=== PATIENT | male | born 1965 | race Caucasian/White ===

== ENCOUNTER 2019-04-30 07:58 | Day surgery (SDC) | payer BC ==
[2019-04-28 12:27] VITALS: BMI 33.3
[~2019-04-30 07:58] MED LIST: LACTATED RINGERS 1,000 ML IV SCH; LIDOCAINE 1% 20 ML VIAL (10MG/ML) FOR IV START INTRADERMA PRN
[2019-04-30 08:38] VITALS: TEMP 97.9
[2019-04-30] MEDS ORDERED: PROPOFOL 10 MG/ML 20 ML VIAL IV ONE (09:04)
--- NOTE | 2019-04-30 09:13 | P.GSHP ---
History of Present Illness H&P Date: 04/30/19 CHIEF COMPLAINT: Colon screen HISTORY OF PRESENT ILLNESS: The patient is a 53-year-old male who presents for colon screen. Lower endoscopy was offered for further evaluation and management. PAST MEDICAL HISTORY: Please see list. PAST SURGICAL HISTORY: Please see list. MEDICATIONS: Please see list. ALLERGIES: Please see list. SOCIAL HISTORY: No illicit drug use FAMILY HISTORY: No reports of Crohn disease or ulcerative colitis. REVIEW OF ORGAN SYSTEMS: CONSTITUTIONAL: No reports of fevers or chills. PHYSICAL EXAM: VITAL SIGNS: Stable GENERAL: Well-developed pleasant in no acute distress. HEENT: No scleral icterus. Extraocular movements grossly intact. Moist buccal mucosa. NECK: Supple without lymphadenopathy. CHEST: Unlabored respirations. Equal bilateral excursions. CARDIOVASCULAR: Regular rate and rhythm. Distal 2+ pulses. ABDOMEN: Soft, nontender, nondistended. MUSCULOSKELETAL: No clubbing, cyanosis, or edema. ASSESSMENT: 1. Colon screen. PLAN: 1. Recommend proceeding with a lower endoscopy Past Medical History Past Medical History: No Reported History History of Any Multi-Drug Resistant Organisms: None Reported Past Surgical History: No Surgical Hx Reported Additional Past Anesthesia/Blood Transfusion Reaction / Comment(s): never had Smoking Status: Former smoker - Past Family History Brother(s) Family Medical History: Cancer Additional Family Medical History / Comment(s): eye Medications and Allergies Home Medications Medication Instructions Recorded Confirmed Type Clobetasol Cream 1 applicate TOPICAL DIRECTED PRN 04/29/19 04/30/19 History Allergies Allergy/AdvReac Type Severity Reaction Status Date / Time amoxicillin Allergy Rash/Hives Verified 04/30/19 08:14 tape Allergy Rash/Hives Uncoded 04/30/19 08:14 Surgical - Exam Vital Signs Temp Pulse Resp BP Pulse Ox 97.9 F 74 18 133/88 96 04/30/19 08:20 04/30/19 08:20 04/30/19 08:20 04/30/19 08:20 04/30/19 08:20
--- NOTE | 2019-04-30 09:34 | P.PCN ---
Date of Procedure: 04/30/19 Description of Procedure: PREOPERATIVE DIAGNOSIS: Colonoscopy screening, first POSTOPERATIVE DIAGNOSIS: Colonoscopy screening, first Multiple tubular adenomas throughout the colon. Sigmoid diverticulosis OPERATION: Colonoscopy to the ileocecal valve and appendiceal orifice. Colonoscopy with multiple hot snare polypectomies SURGEON: Damaris Shepherd MD. ANESTHESIA: MAC. INDICATIONS: The patient is a 53-year-old male who presents for his first colonoscopy screening. Benefits and risks were described and informed consent was obtained. DESCRIPTION OF PROCEDURE: The patient had undergone Suprep. He had been brought into the operating room and laid in the left lateral decubitus position. After adequate intravenous sedation, the rectum was examined with 2% lidocaine jelly. The rectal fossa was unremarkable. No external hemorrhoids were encountered. The rectal tone was within normal limits. No lesions were palpated in the rectal vault. An Olympus colonoscope was advanced until the ileocecal valve and appendiceal orifice were clearly viewed. The prep was fair with visualization of the mucosal folds. The scope was removed with visualization of each mucosal fold. Moderate scattered diverticulosis was encountered. Multiple colonic polyps were found and snare polypectomy. No evidence of focal colitis was found. Retroflexion of the scope demonstrated grade 1 internal hemorrhoids without active bleeding or inflammation. The colon was desufflated. The patient had tolerated the procedure well. Withdrawal time was over 6 minutes. FINDINGS: Aronchick preparation quality scale 2 (1-5) Internal hemorrhoids, grade 1 No external hemorrhoids No arteriovenous malformations Sigmoid diverticulosis, moderate to severe Removal of 2 polyps: - Snare polypectomy 35 cm from the anal verge, 13 mm tubulovillous adenoma polyp. - Snare polypectomy 15 cm from the anal verge, 5 mm flat villous adenoma polyp. No focal colitis. RECOMMENDATIONS: Given severity of tubular adenomas, recommend repeat colonoscopy 1 year, 2019. Plan - Discharge Summary New Discharge Prescriptions: No Action Clobetasol Cream 1 applicate TOPICAL DIRECTED PRN PRN Reason: Rash Discharge Medication List Clobetasol Cream 1 applicate TOPICAL DIRECTED PRN 04/29/19 [History] Follow up Appointment(s)/Referral(s): Damaris Shepherd MD [STAFF PHYSICIAN] - As Needed Patient Instructions/Handouts: Colorectal Polyps (IP), Diverticulosis Diet (GEN), Diverticulosis (DC) Activity/Diet/Wound Care/Special Instructions: Repeat colonoscopy in one year, 2019 Discharge Disposition: HOME SELF-CARE
[2019-04-30 09:53] VITALS: BP 126/84; PULSE 69; RESP 16
== END 2019-04-30 10:05 | disposition home or self-care (01) ==
LOC: ORWHC2ENDO 07:58
PROVIDERS: ATTEND Surgery Plastic and Reconstructive Surgery
DX: Z12.11 Encounter for screening for malignant neoplasm of colon (principal); K57.30 Diverticulosis of large intestine without perforation or abscess without bleeding; Z87.891 Personal history of nicotine dependence; K62.0 Anal polyp; Z88.1 Allergy status to other antibiotic agents; Z88.8 Allergy status to other drugs, medicaments and biological substances
CPT/HCPCS: 88305; 45385; J2704

== ENCOUNTER 2019-04-30 15:53 | Inpatient (IN) | payer BC ==
[2019-04-30] MEDS ORDERED: SODIUM CHLORIDE 0.9% 1,000 ML IV STA (16:03)
[2019-04-30 16:34] LABS: Basophils # (A) 0.1 k/uL (0-0.2); Basophils % (A) 0 %; Eosinophils # (A) 0.3 k/uL (0-0.7); Eosinophils % (A) 2 %; HCT 39.8 % (39.0-53.0); HGB 13.5 gm/dL (13.0-17.5); Lymphocytes # (A) 0.9 k/uL (1.0-4.8); Lymphocytes % (A) 7 %; MCH 29.8 pg (25.0-35.0); MCV 87.4 fL (80.0-100.0); Mean Platelet Volume 6.2; Monocytes # (A) 0.6 k/uL (0-1.0); Monocytes % (A) 5 %; Neutrophils # (A) 10.7 k/uL (1.3-7.7); Neutrophils % (A) 84 %; Platelet Count 233 k/uL (150-450); RBC 4.55 m/uL (4.30-5.90); RDW 13.3 % (11.5-15.5); WBC 12.7 k/uL (3.8-10.6)
[2019-04-30 16:46] LABS: Albumin 3.3 g/dL (3.5-5.0); Calcium 8.3 mg/dL (8.4-10.2); Magnesium 1.9 mg/dL (1.6-2.3); Partial Thromboplastin Time 24.9 sec (22.0-30.0); Potassium 3.8 mmol/L (3.5-5.1); Prothrombin Time 10.9 sec (9.0-12.0); Total Bilirubin 0.5 mg/dL (0.2-1.3); Total Protein 5.6 g/dL (6.3-8.2)
--- NOTE | 2019-04-30 16:52 | XR ---
EXAMINATION TYPE: XR chest 1V portable DATE OF EXAM: 04/30/2019 COMPARISON: NONE HISTORY: Syncope TECHNIQUE: Single frontal view of the chest is obtained. FINDINGS: Heart and mediastinum are normal. Lungs are clear. Diaphragm is normal. Bony thorax is int act. There are chest leads. IMPRESSION: No active cardiopulmonary disease. Normal heart.
--- NOTE | 2019-04-30 16:53 | XR ---
EXAMINATION TYPE: XR KUB portable DATE OF EXAM: 04/30/2019 COMPARISON: NONE HISTORY: Abdominal pain TECHNIQUE: 2 views upright FINDINGS: There is no sign of intestinal obstruction or pneumoperitoneum. Fecal pattern is normal. Jackelyn ng bases are clear. There are no pathologic calcifications over the kidneys. IMPRESSION: Nonacute abdomen. No free air.
--- NOTE | 2019-04-30 16:57 | ED ---
GI Bleed HPI - General Chief complaint: GI Bleed Stated complaint: GI bleed, syncope Time Seen by Provider: 04/30/19 16:00 Source: patient, EMS Mode of arrival: ambulatory Limitations: no limitations - History of Present Illness Initial comments: The patient is a 53-year-old male presents to the emergency department with complaints of bright red blood per rectum. The patient had a routine colonoscopy this morning by Dr. Dyer. She removed two polyps. The patient went home and stated that he began having bright red bleeding around 10 AM. The bleeding began to become heavier. He did use the restroom just prior to calling EMS. At that point he had a very large bowel movements consisting of bright red blood and clotted blood. When he stood up, he had a syncopal episode. He fell and hit his head in the bathroom. EMS was called. Upon their arrival they found the patient to be ashen atkins and hypotensive. IV was established the patient was given 600 mL of normal saline. He does arrive to mi diaphoretic. He denies having any abdominal pain. The sheet underneath the patient is saturated with bright red blood. He denies any dark or tarry stools. No nausea or vomiting. Denies hematemesis. No history of GI bleed in the past. denies any headaches, neck pain or visual changes. No unilateral numbness or weakness. Denies any injuries from his fall with blunt trauma. There are no other alleviating, precipitating or modifying factors - Related Data Home Medications Medication Instructions Recorded Confirmed Clobetasol Propionate [Temovate 1 applic TOPICAL DAILY PRN 04/30/19 04/30/19 0.05% Cream] [place]-3 Fatty Acids/Fish Oil [Fish 2 cap PO DAILY 04/30/19 04/30/19 Oil 1,000 mg Softgel] Allergies Allergy/AdvReac Type Severity Reaction Status Date / Time adhesive tape Allergy Rash/Hives Verified 04/30/19 16:29 amoxicillin Allergy Rash/Hives Verified 04/30/19 16:29 tape Allergy Rash/Hives Uncoded 04/30/19 08:14 Review of Systems ROS Statement: Those systems with pertinent positive or pertinent negative responses have been documented in the HPI. ROS Other: All systems not noted in ROS Statement are negative. Past Medical History Past Medical History: No Reported History History of Any Multi-Drug Resistant Organisms: None Reported Past Surgical History: No Surgical Hx Reported Additional Past Surgical History / Comment(s): colonoscopy Additional Past Anesthesia/Blood Transfusion Reaction / Comment(s): never had Past Psychological History: No Psychological Hx Reported Smoking Status: Former smoker Past Alcohol Use History: Occasional Past Drug Use History: None Reported - Past Family History Brother(s) Family Medical History: Cancer Additional Family Medical History / Comment(s): eye General Exam Limitations: no limitations General appearance: alert, in distress Head exam: Present: normocephalic, normal inspection, other (no external signs of trauma) Eye exam: Present: normal appearance, PERRL, EOMI. Absent: scleral icterus, conjunctival injection, periorbital swelling ENT exam: Present: normal exam, mucous membranes dry Neck exam: Present: normal inspection. Absent: tenderness, meningismus, lymphadenopathy Respiratory exam: Present: normal lung sounds bilaterally. Absent: respiratory distress, wheezes, rales, rhonchi, stridor Cardiovascular Exam: Present: regular rate, normal rhythm, normal heart sounds. Absent: systolic murmur, diastolic murmur, rubs, gallop, clicks GI/Abdominal exam: Present: soft, normal bowel sounds. Absent: distended, tenderness, guarding, rebound, rigid Rectal exam: Present: bloody stool, other (significant amount of bright red blood from the rectum. No palpable masses) Extremities exam: Present: normal inspection, full ROM, normal capillary refill. Absent: tenderness, pedal edema, joint swelling, calf tenderness Back exam: Present: normal inspection Neurological exam: Present: alert, oriented X3, CN II-XII intact Psychiatric exam: Present: normal affect, normal mood Skin exam: Present: warm, intact, diaphoretic, pallor. Absent: rash Course Vital Signs 04/30/19 04/30/19 04/30/19 15:58 16:00 16:05 Temperature 97.6 F Pulse Rate 80 Respiratory 18 Rate Blood Pressure 107/75 107/75 O2 Sat by Pulse 99 98 100 Oximetry 04/30/19 04/30/19 04/30/19 16:30 17:00 17:30 Temperature Pulse Rate 77 79 75 Respiratory 9 L 9 L 6 L Rate Blood Pressure 96/65 116/64 121/78 O2 Sat by Pulse 100 100 99 Oximetry 04/30/19 04/30/19 04/30/19 17:51 18:00 19:00 Temperature Pulse Rate 75 72 69 Respiratory 6 L 7 L 7 L Rate Blood Pressure 121/78 131/75 99/68 O2 Sat by Pulse 99 98 96 Oximetry Medical Decision Making - Medical Decision Making Upon arrival the patient is placed in trauma bay 2. He is hooked up to cont inuous pulse ox and cardiac monitoring. Vitals are obtained. We did establish 2 large bore peripheral IVs. Laboratory studies were conducted. The patient was typed and screened. I did perform a portable abdominal x-ray to evaluate for free air which is negative. The patient does receive an additional liter bolus of 0.9% normal saline. Upon reevaluation the patient's blood pressure has improved to 130 systolic. His heart rate is normalized in the 60s. He has had one further episode of bright red blood per rectum however states it does feel as if it is slowing. I did recommend admission to the hospital. I did call discuss the case with Dr. Dyer who did accept admission for the patient. Dr. Dyer will be on vacation and therefore I did call and discuss the case with Dr. Mccall. He did continue to accept admission. The patient will be placed in the ICU as he does have active bleeding at this time. I did call discuss case with Dr. Gregg who did accept admission for the patient. We will continue to trend the patient's hemoglobins every 6 hours. The patient remained in stable condition and was transported to the ICU - Differential Diagnosis acute GI bleed, s/p colonoscopy - Lab Data Result diagrams: 05/01/19 10:58 05/01/19 04:28 Lab Results 04/30/19 04/30/19 04/30/19 Range/Units 16:19 16:19 16:19 WBC (3.8-10.6) k/uL RBC (4.30-5.90) m/uL Hgb (13.0-17.5) gm/dL Hct (39.0-53.0) % MCV (80.0-100.0) fL MCH (25.0-35.0) pg MCHC (31.0-37.0) g/dL RDW (11.5-15.5) % Plt Count (150-450) k/uL Neutrophils % % Lymphocytes % % Monocytes % % Eosinophils % % Basophils % % Neutrophils # (1.3-7.7) k/uL Lymphocytes # (1.0-4.8) k/uL Monocytes # (0-1.0) k/uL Eosinophils # (0-0.7) k/uL Basophils # (0-0.2) k/uL PT 10.9 (9.0-12.0) sec INR 1.0 (<1.2) APTT 24.9 (22.0-30.0) sec Sodium 137 (137-145) mmol/L Potassium 3.8 (3.5-5.1) mmol/L Chloride 102 (98-107) mmol/L Carbon Dioxide 28 (22-30) mmol/L Anion Gap 7 mmol/L BUN 18 (9-20) mg/dL Creatinine 1.43 H (0.66-1.25) mg/dL Est GFR (CKD-EPI)AfAm 66 (>60 ml/min/1.73 sqM) Est GFR (CKD-EPI)NonAf 57 (>60 ml/min/1.73 sqM) Glucose 131 H (74-99) mg/dL Plasma Lactic Acid Reyes 1.6 (0.7-2.0) mmol/L Calcium 8.3 L (8.4-10.2) mg/dL Magnesium 1.9 (1.6-2.3) mg/dL Total Bilirubin 0.5 (0.2-1.3) mg/dL AST 40 (17-59) U/L ALT 37 (21-72) U/L Alkaline Phosphatase 78 (38-126) U/L Total Protein 5.6 L (6.3-8.2) g/dL Albumin 3.3 L (3.5-5.0) g/dL Lipase 86 (23-300) U/L Blood Type Blood Type Recheck Antibody Screen Spec Expiration Date 04/30/19 04/30/19 Range/Units 16:19 16:25 WBC 12.7 H (3.8-10.6) k/uL RBC 4.55 (4.30-5.90) m/uL Hgb 13.5 (13.0-17.5) gm/dL Hct 39.8 (39.0-53.0) % MCV 87.4 (80.0-100.0) fL MCH 29.8 (25.0-35.0) pg MCHC 34.0 (31.0-37.0) g/dL RDW 13.3 (11.5-15.5) % Plt Count 233 (150-450) k/uL Neutrophils % 84 % Lymphocytes % 7 % Monocytes % 5 % Eosinophils % 2 % Basophils % 0 % Neutrophils # 10.7 H (1.3-7.7) k/uL Lymphocytes # 0.9 L (1.0-4.8) k/uL Monocytes # 0.6 (0-1.0) k/uL Eosinophils # 0.3 (0-0.7) k/uL Basophils # 0.1 (0-0.2) k/uL PT (9.0-12.0) sec INR (<1.2) APTT (22.0-30.0) sec Sodium (137-145) mmol/L Potassium (3.5-5.1) mmol/L Chloride (98-107) mmol/L Carbon Dioxide (22-30) mmol/L Anion Gap mmol/L BUN (9-20) mg/dL Creatinine (0.66-1.25) mg/dL Est GFR (CKD-EPI)AfAm (>60 ml/min/1.73 sqM) Est GFR (CKD-EPI)NonAf (>60 ml/min/1.73 sqM) Glucose (74-99) mg/dL Plasma Lactic Acid Reyes (0.7-2.0) mmol/L Calcium (8.4-10.2) mg/dL Magnesium (1.6-2.3) mg/dL Total Bilirubin (0.2-1.3) mg/dL AST (17-59) U/L ALT (21-72) U/L Alkaline Phosphatase (38-126) U/L Total Protein (6.3-8.2) g/dL Albumin (3.5-5.0) g/dL Lipase (23-300) U/L Blood Type A Positive Blood Type Recheck CABO Indicated Antibody Screen NEGATIVE Spec Expiration Date 05/03/2019 - 0875 - EKG Data EKG Comments: EKG demonstrates a normal sinus rhythm with a ventricular rate of 72. NC interval is 134. QRS 106. QTC 424. There are no acute ST segment elevations. There is overall low voltage. There is biphasic T wave in lead V3. No acute ST segment elevations or depressions Disposition Clinical Impression: Hematochezia, Colonoscopy causing post-procedural bleeding, Lower gastrointestinal hemorrhage Disposition: ADMITTED IP TO THIS HOSP Condition: Serious Is patient prescribed a controlled substance at d/c from ED?: No Decision to Admit Reason: Admit from EC Decision Date: 04/30/19 Decision Time: 17:01
[2019-04-30] MEDS ORDERED: NALOXONE 0.4 MG/ML 1 ML VIAL IV PRN (17:02)
[2019-04-30] MEDS ORDERED: CLOBETASOL PROP 0.05% CR 15GM TOPICAL PRN (17:20)
--- NOTE | 2019-04-30 17:30 | CT ---
EXAMINATION TYPE: CT brain ronnelline wo con DATE OF EXAM: 04/30/2019 COMPARISON: None HISTORY: PT had colonoscopy today, had rectal bleeding. Pt passed out and hit LT side head w/ LOC CT DLP: 1612.5 mGycm Automated exposure control for dose reduction was used. TECHNIQUE: CT scan of the head and cervical spine are performed without contrast. FINDINGS: Ventricles of normal size. There is no mass effect nor midline shift. There is no sign of intracranial hemorrhage. The calvarium is intact. There is some mucosal thickening in the ethmoid si nuses. Cervical vertebra have normal spacing and alignment. Posterior elements are intact. Facet joints appe ar normal. The skull base appears intact. IMPRESSION: Normal CT scan of the brain. Mild ethmoid sinusitis. Normal CT scan of the cervical spine.
--- NOTE | 2019-04-30 18:17 | P.GSHP ---
History of Present Illness H&P Date: 04/30/19 CHIEF COMPLAINT: Rectal bleeding HISTORY OF PRESENT ILLNESS: The patient is a 53year old male who had a colonoscopy this morning. This was his first colonoscopy. He had findings including a large greater than 1 cm polyp at the sigmoid colon that was snared. He reports doing fairly well prior to discharge home. He then went to [facility] and had biscuits and gravy. At the restaurant, he had urge for bowel movement which was blood. He then had gone home and had at least 2-3 more bowel move ments. He said his stools went from blood then cleared off to mucousy red. He then had a syncopal episode at home. He was brought in by EMS secondary to syncopal episode. Separately, he reports pre-existing epigastric abdominal pain. He was taking omega-3 fatty fish oil over 2 weeks ago. He doesn't take anything for gastroesophageal reflux disease. He does report transit episode of dark stools as well. PAST MEDICAL HISTORY: See list. PAST SURGICAL HISTORY: See list. MEDICATIONS: See list. ALLERGIES: See list. SOCIAL HISTORY: No illicit drug use FAMILY HISTORY: No reports of Crohn's disease or inflammatory bowel disease REVIEW OF ORGAN SYSTEMS: CONSTITUTIONAL: No fevers or chills. No recent weight loss. EYES: Denies any trouble with vision. No glasses. HEENT: No difficulties with hearing. No nosebleeds. No difficulty swallowing. RESPIRATORY: Denies pneumonia. Denies any troubles with breathing or dyspnea on exertion. CARDIOVASCULAR: Denies any chest pain, palpitations, or recent heart attacks. GASTROINTESTINAL: Denies fatty food intolerance. Denies change in bowel habits and gas bloat. GENITOURINARY: Denies any blood in urine or increased urinary frequency. NEUROLOGICAL: Denies any numbness or tingling along the distal extremities. No seizure disorders or headaches. MUSCULOSKELETAL: Has any back pain, stiffness or joint arthritis. SKIN: No current skin cancer. No rash. PSYCHIATRIC: Denies current depression or suicidal thoughts. ENDOCRINE: Denies current thyroid disorders. Denies any blood sugar glucose intolerance. HEME/LYMPHATIC: Denies any lumps and bumps around the neck. No recent deep venous thrombosis. ALLERGY/IMMUNOLOGY: No immunoglobulin therapy. No immune deficiencies. BREAST: Denies current breast lumps, pain or nipple discharge. PHYSICAL EXAM: VITALS: Reviewed CONSTITUTIONAL: Well developed and in no acute distress. EYES: Conjuctivae without sclera icterus. Pupils are equally round and reactive to light. Extraocular movements grossly intact. HEAD, EARS, NOSE, THROAT: Moist buccal mucosa. Head is atraumatic, nor mocephalic. Hears conversational speech. No nasal drainage. Good dentition. NECK: Supple. No JV distention. No thyroidomegaly. RESPIRATORY: Non-labored respirations and equal bilateral excursions. No gross wheezes. CARDIOVASCULAR: Regular rate and rhythm. Extremities without moderate edema. Palpable 2+ radial pulses. ABDOMEN: No hepatomegaly. Soft. Non-tender. Nondistended. LYMPH: No neck lymphadenopathy. No axillary lymphadenopathy. MUSCULOSKELETAL: Nail and fingers with good capillary refill. SKIN: Warm and well perfused with good skin turgor. NEUROLOGIC: Cranial nerves I through XII grossly intact. Sensation upper and extremities intact. No focal or lateralizing signs. PSYCH: Appropriate affect. Alert and oriented to person, place and time. Displays appropriate insight. CLINCAL LABS: Reviewed. Hemoglobin 13.5. White blood cell count 12.5. RADIOLOGY: Report reviewed. Negative for acute bleed or intracranial process. MEDICAL TEST: Endoscopy reviewed ASSESSMENT: 1. Gastrointestinal bleeding PLAN: 1. IV fluid hydration with repeat hemoglobin in the morning 2. Protonix for history of epigastric abdominal pain possible ulcers 3. Blood transfusion as needed Past Medical History Past Medical History: No Reported History History of Any Multi-Drug Resistant Organisms: None Reported Past Surgical History: No Surgical Hx Reported Additional Past Surgical History / Comment(s): colonoscopy Additional Past Anesthesia/Blood Transfusion Reaction / Comment(s): never had Past Psychological History: No Psychological Hx Reported Smoking Status: Former smoker Past Alcohol Use History: Occasional Past Drug Use History: None Reported - Past Family History Brother(s) Family Medical History: Cancer Additional Family Medical History / Comment(s): eye Medications and Allergies Home Medications Medication Instructions Recorded Confirmed Type Clobetasol Propionate [Temovate 1 applic TOPICAL DAILY PRN 04/30/19 04/30/19 History 0.05% Cream] [place]-3 Fatty Acids/Fish Oil [Fish 2 cap PO DAILY 04/30/19 04/30/19 History Oil 1,000 mg Softgel] Allergies Allergy/AdvReac Type Severity Reaction Status Date / Time adhesive tape Allergy Rash/Hives Verified 04/30/19 16:29 amoxicillin Allergy Rash/Hives Verified 04/30/19 16:29 tape Allergy Rash/Hives Uncoded 04/30/19 08:14 Surgical - Exam Vital Signs Pulse Ox 99 04/30/19 15:58 Results - Labs 05/01/19 10:58 05/01/19 04:28 Abnormal Lab Results - Last 24 Hours (Table) 04/30/19 04/30/19 Range/Units 16:19 16:25 WBC 12.7 H (3.8-10.6) k/uL Neutrophils # 10.7 H (1.3-7.7) k/uL Lymphocytes # 0.9 L (1.0-4.8) k/uL Creatinine 1.43 H (0.66-1.25) mg/dL Glucose 131 H (74-99) mg/dL Calcium 8.3 L (8.4-10.2) mg/dL Total Protein 5.6 L (6.3-8.2) g/dL Albumin 3.3 L (3.5-5.0) g/dL Diabetes panel 04/30/19 Range/Units 16:19 Sodium 137 (137-145) mmol/L Potassium 3.8 (3.5-5.1) mmol/L Chloride 102 (98-107) mmol/L Carbon Dioxide 28 (22-30) mmol/L BUN 18 (9-20) mg/dL Creatinine 1.43 H (0.66-1.25) mg/dL Glucose 131 H (74-99) mg/dL Calcium 8.3 L (8.4-10.2) mg/dL AST 40 (17-59) U/L ALT 37 (21-72) U/L Alkaline Phosphatase 78 (38-126) U/L Total Protein 5.6 L (6.3-8.2) g/dL Albumin 3.3 L (3.5-5.0) g/dL Calcium panel 04/30/19 Range/Units 16:19 Calcium 8.3 L (8.4-10.2) mg/dL Albumin 3.3 L (3.5-5.0) g/dL Pituitary panel 04/30/19 Range/Units 16:19 Sodium 137 (137-145) mmol/L Potassium 3.8 (3.5-5.1) mmol/L Chloride 102 (98-107) mmol/L Carbon Dioxide 28 (22-30) mmol/L BUN 18 (9-20) mg/dL Creatinine 1.43 H (0.66-1.25) mg/dL Glucose 131 H (74-99) mg/dL Calcium 8.3 L (8.4-10.2) mg/dL Adrenal panel 04/30/19 Range/Units 16:19 Sodium 137 (137-145) mmol/L Potassium 3.8 (3.5-5.1) mmol/L Chloride 102 (98-107) mmol/L Carbon Dioxide 28 (22-30) mmol/L BUN 18 (9-20) mg/dL Creatinine 1.43 H (0.66-1.25) mg/dL Glucose 131 H (74-99) mg/dL Calcium 8.3 L (8.4-10.2) mg/dL Total Bilirubin 0.5 (0.2-1.3) mg/dL AST 40 (17-59) U/L ALT 37 (21-72) U/L Alkaline Phosphatase 78 (38-126) U/L Total Protein 5.6 L (6.3-8.2) g/dL Albumin 3.3 L (3.5-5.0) g/dL Assessment and Plan (1) Syncope Status: Acute Code(s): R55 - SYNCOPE AND COLLAPSE SNOMED Code(s): 101954386 (2) Epigastric pain Status: Acute Code(s): R10.13 - EPIGASTRIC PAIN SNOMED Code(s): 85703880 (3) Colonoscopy causing post-procedural bleeding Status: Acute Code(s): K91.840 - POSTPROC HEMOR OF A DGSTV SYS ORG FOL A DGSTV SYS PROCEDURE SNOMED Code(s): 23035938 (4) Hematochezia Status: Acute Code(s): K92.1 - MELENA SNOMED Code(s): 995435484 (5) Lower gastrointestinal hemorrhage Status: Acute Code(s): K92.2 - GASTROINTESTINAL HEMORRHAGE, UNSPECIFIED SNOMED Code(s): 63854972
[2019-04-30 19:39] LABS: Glucose,Whole Blood 108 mg/dL (75-99)
[2019-04-30 20:19] VITALS: BMI 32.6
[2019-04-30] MEDS ORDERED: ONDANSETRON 4 MG/2 ML VIAL IVP PRN (20:19)
[2019-04-30] MEDS ORDERED: ACETAMINOPHEN TAB 325 MG TAB PO PRN (20:19)
[2019-04-30] MEDS ORDERED: MORPHINE SULFATE 4 MG/ML SYRINGE IVP PRN (20:19)
[2019-04-30] MEDS: SODIUM CHLORIDE 0.9% 1,000 ML IV SCH ×3 (20:57→21:47)
[2019-04-30] MEDS: PANTOPRAZOLE 40 MG/10 ML VIAL IVP SCH (21:03)
[2019-04-30 23:05] LABS: HCT 33.7 % (39.0-53.0); HGB 11.4 gm/dL (13.0-17.5); MCH 29.7 pg (25.0-35.0); MCHC 33.7 g/dL (31.0-37.0); Mean Platelet Volume 6.4; Platelet Count 210 k/uL (150-450); RBC 3.83 m/uL (4.30-5.90); RDW 14.1 % (11.5-15.5)
[2019-05-01 06:10] LABS: Calcium 8.3 mg/dL (8.4-10.2); Potassium 3.9 mmol/L (3.5-5.1)
[2019-05-01 06:15] LABS: HCT 31.7 % (39.0-53.0); HGB 10.9 gm/dL (13.0-17.5); MCH 30.1 pg (25.0-35.0); MCHC 34.4 g/dL (31.0-37.0); MCV 87.5 fL (80.0-100.0); Mean Platelet Volume 6.7; Platelet Count 198 k/uL (150-450); RBC 3.62 m/uL (4.30-5.90); RDW 13.8 % (11.5-15.5); WBC 6.4 k/uL (3.8-10.6)
[2019-05-01] MEDS: SODIUM CHLORIDE 0.9% 1,000 ML IV SCH (08:28)
[2019-05-01] MEDS: PANTOPRAZOLE 40 MG/10 ML VIAL IVP SCH (08:28)
--- NOTE | 2019-05-01 09:33 | P.PN ---
Subjective Progress Note Date: 05/01/19 Principal diagnosis: GI bleed Patient doing well overnight. No further bleeding. Last episode of bloody stool was while he was in the emergency department. Hemoglobin 10.9. He is hungry. Tolerating clears. Objective - Vital Signs Vital signs: Vital Signs Temp 98.7 F 05/01/19 04:00 Pulse 60 05/01/19 06:00 Resp 10 L 05/01/19 06:00 BP 93/51 05/01/19 06:00 Pulse Ox 96 05/01/19 06:00 Intake & Output 04/30/19 05/01/19 05/01/19 18:59 06:59 18:59 Intake Total 2800 100 Output Total 1150 675 Balance 1650 -575 Weight 115.485 kg 117 kg Intake: IV 2800 100 Sodium Chloride 0.9% 1, 800 100 000 ml @ 100 mls/hr IV . Q10H ORIN Rx#:[id number] Sodium Chloride 0.9% 1, 1000 000 ml @ 999 mls/hr IV . Q1H1M ORIN Rx#:[id number] Sodium Chloride 0.9% 1, 1000 000 ml @ 999 mls/hr IV . Q1H1M STA Rx#:[id number] Output: Urine 1150 675 Other: Voiding Method Urinal # Voids 0 1 - Exam Abdomen: Soft, nontender, nondistended - Labs CBC & Chem 7: 05/01/19 04:28 05/01/19 04:28 Labs: Abnormal Lab Results - Last 24 Hours (Table) 04/30/19 04/30/19 04/30/19 Range/Units 16:19 16:25 19:35 WBC 12.7 H (3.8-10.6) k/uL RBC (4.30-5.90) m/uL Hgb (13.0-17.5) gm/dL Hct (39.0-53.0) % Neutrophils # 10.7 H (1.3-7.7) k/uL Lymphocytes # 0.9 L (1.0-4.8) k/uL Chloride (98-107) mmol/L Creatinine 1.43 H (0.66-1.25) mg/dL Glucose 131 H (74-99) mg/dL POC Glucose (mg/dL) 108 H (75-99) mg/dL Calcium 8.3 L (8.4-10.2) mg/dL Total Protein 5.6 L (6.3-8.2) g/dL Albumin 3.3 L (3.5-5.0) g/dL 04/30/19 05/01/19 05/01/19 Range/Units 22:37 04:28 04:28 WBC (3.8-10.6) k/uL RBC 3.83 L 3.62 L (4.30-5.90) m/uL Hgb 11.4 L 10.9 L (13.0-17.5) gm/dL Hct 33.7 L 31.7 L (39.0-53.0) % Neutrophils # (1.3-7.7) k/uL Lymphocytes # (1.0-4.8) k/uL Chloride 109 H (98-107) mmol/L Creatinine (0.66-1.25) mg/dL Glucose 101 H (74-99) mg/dL POC Glucose (mg/dL) (75-99) mg/dL Calcium 8.3 L (8.4-10.2) mg/dL Total Protein (6.3-8.2) g/dL Albumin (3.5-5.0) g/dL Assessment and Plan (1) Lower gastrointestinal hemorrhage Narrative/Plan: Post polypectomy bleed. Doing well at this time. Advance diet. Possible discharge later today or tomorrow. Current Visit: Yes Status: Acute Code(s): K92.2 - GASTROINTESTINAL HEMORRHAGE, UNSPECIFIED SNOMED Code(s): 06982548
[2019-05-01 11:43] LABS: HCT 31.5 % (39.0-53.0); HGB 10.7 gm/dL (13.0-17.5); MCH 29.9 pg (25.0-35.0); MCHC 34.1 g/dL (31.0-37.0); MCV 87.7 fL (80.0-100.0); Mean Platelet Volume 6.2; Platelet Count 190 k/uL (150-450); RDW 13.4 % (11.5-15.5); WBC 5.7 k/uL (3.8-10.6)
--- NOTE | 2019-05-01 14:12 | P.CNPUL ---
History of Present Illness Consult date: 05/01/19 Requesting physician: Damaris Shepherd Reason for consult: other (GI bleeding, active) Chief complaint: Rectal bleeding History of present illness: This is a 53-year-old white male who underwent screening routine colonoscopy on 04/30/2019. This was actually his first colonoscopy. Patient was found to have greater than 1 cm polyp in the sigmoid colon and this was snared. Patient was discharged home. Patient ate at [employer] and he had biscuits and gravy. While in the restaurant, patient had the urge to have a bowel movement, and this was basically grossly bloody. Then the patient went home, and had at least 2 bowel movements with blood. He also had a syncopal episode at home during his bloody bowel movements. EMS was notified, patient was brought into the ER, and his main complaint was syncopal episode. And rectal bleeding. While in the ER, patient had more bloody bowel movements, and he was initially hypotensive and tachycardic. Patient was given IV fluids, did not require any blood transfusion, blood pressure stabilized, heart rate was also stabilized, then arrangements were made to transfer the patient to the ICU. Since admission to the ICU, the patient had no bloody bowel movements whatsoever. His hemoglobin was just over 12 initially, and it is 10.7 today. Patient denies any active bleeding denies any nausea no vomiting, denies any abdominal pain. And his blood pressure again is noted to be very stable. After evaluating the patient, I felt we could attention a transfer the patient out of the ICU, and continue to monitor for the next 24 hours. Patient was started on clear liquids, and his diet will be advanced today. He was already seen by surgery on consultation. His last episode of GI bleeding was the one he had in the ER last. Review of Systems Constitutional: Denies fever chills or weight loss. Eyes: denies blurred vision, denies pain Ears: deny: decreased hearing, ear discharge, earache, tinnitus Ears, nose, mouth and throat: Denies headache, Denies sore throat Cardiovascular: No palpitation, did have syncope while he was having active GI bleeding.. Respiratory: No cough, no wheezing, no chest pain. No shortness of breath. Gastrointestinal: Denies abdominal pain, Denies diarrhea, Denies nausea, Denies vomiting, did have multiple bloody bowel movements. Genitourinary: Denies any dysuria frequency urgency hematuria. Musculoskeletal: Denies any aches or pains, no arthralgia, no myalgia.. Integumentary: Denies pruritus, Denies rash Neurological: No headache blurred vision or dizziness Psychiatric: Denies anxiety, Denies depression Endocrine: Denies any heat or cold intolerance. Hematologic/Lymphatic: As noted in HPI. Past Medical History Past Medical History: No Reported History History of Any Multi-Drug Resistant Organisms: None Reported Past Surgical History: No Surgical Hx Reported Additional Past Surgical History / Comment(s): colonoscopy Additional Past Anesthesia/Blood Transfusion Reaction / Comment(s): never had Past Psychological History: No Psychological Hx Reported Smoking Status: Former smoker Past Alcohol Use History: Occasional Past Drug Use History: None Reported - Past Family History Brother(s) Family Medical History: Cancer Additional Family Medical History / Comment(s): eye Medications and Allergies Home Medications Medication Instructions Recorded Confirmed Type Clobetasol Propionate [Temovate 1 applic TOPICAL DAILY PRN 04/30/19 04/30/19 H istory 0.05% Cream] Mccall-3 Fatty Acids/Fish Oil [Fish 2 cap PO DAILY 04/30/19 04/30/19 History Oil 1,000 mg Softgel] Allergies Allergy/AdvReac Type Severity Reaction Status Date / Time adhesive tape Allergy Rash/Hives Verified 04/30/19 16:29 amoxicillin Allergy Rash/Hives Verified 04/30/19 16:29 tape Allergy Rash/Hives Uncoded 04/30/19 08:14 Physical Exam Vitals: Vital Signs Temp Pulse Resp BP Pulse Ox 05/01/19 12:00 98.5 F 62 17 122/72 95 05/01/19 11:00 71 12 120/90 94 L 05/01/19 10:00 63 14 140/90 98 05/01/19 09:00 68 12 136/88 95 05/01/19 08:00 97.7 F 71 15 116/72 95 05/01/19 07:00 60 12 92/58 96 05/01/19 06:00 60 10 L 93/51 96 05/01/19 05:00 57 L 12 110/78 93 L 05/01/19 04:00 98.7 F 68 13 105/70 91 L 05/01/19 03:00 63 7 L 104/73 96 05/01/19 02:00 57 L 8 L 96/60 95 05/01/19 01:00 66 15 105/69 95 05/01/19 00:00 98.4 F 69 11 L 109/78 90 L 04/30/19 23:00 57 L 6 L 126/81 96 04/30/19 22:00 66 9 L 114/77 98 04/30/19 21:00 65 10 L 112/75 97 04/30/19 20:00 98.5 F 69 7 L 118/75 96 04/30/19 19:56 98.5 F 04/30/19 19:20 97.6 F 75 6 L 121/78 99 04/30/19 19:00 69 7 L 99/68 96 04/30/19 18:00 72 7 L 131/75 98 04/30/19 17:51 75 6 L 121/78 99 04/30/19 17:30 75 6 L 121/78 99 04/30/19 17:00 79 9 L 116/64 100 04/30/19 16:30 77 9 L 96/65 100 04/30/19 16:05 97.6 F 80 18 107/75 100 04/30/19 16:00 107/75 98 04/30/19 15:58 99 Intake and Output 04/30/19 05/01/19 05/01/19 22:59 06:59 14:59 Intake Total 2000 800 1500 Output Total 997 342 9170 Balance 1400 250 -2175 Intake: IV 2000 800 500 Sodium Chloride 0.9% 1, 800 500 000 ml @ 100 mls/hr IV . Q10H ORIN Rx#:[id number] Sodium Chloride 0.9% 1, 1000 000 ml @ 999 mls/hr IV . Q1H1M ORIN Rx#:[id number] Sodium Chloride 0.9% 1, 1000 000 ml @ 999 mls/hr IV . Q1H1M STA Rx#:[id number] Oral 1000 Output: Urine 390 354 1104 Other: Voiding Method Urinal Toilet Urinal # Voids 0 0 1 # Bowel Movements 1 Weight 115.485 kg 117 kg VITALS: Reviewed General: Revealed a 53-year-old white male in no form of distress. Very pleasant on room air. EYES: PERRLA, EOMI, no icterus. HEAD, EARS, NOSE, THROAT: Moist mucous membranes, clear throat, normal nasal mucosa. NECK: Supple. No neck masses no JVD, no stridor. RESPIRATORY: Symmetrical chest expansion, clear bilaterally no crackles or rhonchi or wheezes. CARDIOVASCULAR: Normal S1 and S2, no S3 gallop. ABDOMEN: Obese, soft, nontender, no megaly, no rebound, no guarding, positive bowel sounds. LYMPH: No cervical lymphadenopathy. MUSCULOSKELETAL: No deformities, normal range of motion, adequate strength bilaterally SKIN: Good skin turgor, no rashes. NEUROLOGIC: Alert oriented 3 focal deficits. PSYCH: Normal mood affect and normal mental status examination. Results - Laboratory Findings CBC and BMP: 05/01/19 10:58 05/01/19 04:28 PT/INR, D-dimer PT 10.9 sec (9.0-12.0) 04/30/19 16: INR 1.0 (<1.2) 04/30/19 16:19 Abnormal lab findings: Abnormal Labs 04/30/19 04/30/19 04/30/19 16:19 16:25 19:35 WBC 12.7 H RBC Hgb Hct Neutrophils # 10.7 H Lymphocytes # 0.9 L Chloride Creatinine 1.43 H Glucose 131 H POC Glucose (mg/dL) 108 H Calcium 8.3 L Total Protein 5.6 L Albumin 3.3 L 04/30/19 05/01/19 05/01/19 22:37 04:28 04:28 WBC RBC 3.83 L 3.62 L Hgb 11.4 L 10.9 L Hct 33.7 L 31.7 L Neutrophils # Lymphocytes # Chloride 109 H Creatinine Glucose 101 H POC Glucose (mg/dL) Calcium 8.3 L Total Protein Albumin 05/01/19 10:58 WBC RBC 3.60 L Hgb 10.7 L Hct 31.5 L Neutrophils # Lymphocytes # Chloride Creatinine Glucose POC Glucose (mg/dL) Calcium Total Protein Albumin - Diagnostic Findings Chest x-ray: image reviewed (No evidence of active disease) Assessment and Plan Assessment: Impression: 1 acute lower GI bleeding, most likely from recent site of snare polypectomy. 2 syncope secondary to GI bleeding, could be vasovagal in nature. 3 acute blood loss secondary to GI bleeding, did not require any transfusion. 4 status post screening colonoscopy and polypectomy on 04/30/2019. 5 acute kidney injury secondary to hypotension secondary to GI bleeding, improving, creatinine on presentation was 1.43, and it is now 1.11 significantly improved. Patient was adequately hydrated. Recommendation: Continue present treatment plan, continue to monitor the patient for the next 24 hours, and if no active bleeding over the next 24 hours, patient could be discharged home likely tomorrow. In the meantime monitor his CBC and his electrolytes as well as renal profile in the next 24 hours. Will follow on when necessary basis. Time with Patient: Greater than 30
[2019-05-01 16:52] VITALS: BP 123/74; PULSE 68; RESP 16; TEMP 98.1
--- NOTE | 2019-05-05 13:18 | P.DS ---
Providers Date of admission: 04/30/19 17:06 Expected date of discharge: 05/01/19 Attending physician: Damaris Shepherd Consults: 04/30/19 18:19 Consult Physician Urgent Consulting Provider: Heidy Gregg Consult Reason/Comments: acute GIB Do you want consulting provider notified?: Already Contacted Primary care physician: Helio Jo Galileo - Discharge Diagnosis(es) (1) Colonoscopy causing post-procedural bleeding Status: Acute (2) Epigastric pain Status: Acute (3) Hematochezia Status: Acute (4) Lower gastrointestinal hemorrhage Status: Acute (5) Syncope Status: Acute Hospital Course: CHIEF COMPLAINT: Rectal bleeding COURSE: The patient is a 53 year old male who had a colonoscopy on the day of his admission. This was his first colonoscopy. He was admitted to the hospital after having a syncopal episode including lower GI bleed. Hemoglobin on admission was over 13. He was observed in the ICU per protocol for gastrointestinal hemorrhage. After IV fluid hydration, hemoglobin was stable between 10.7-11.4. No blood transfusions were performed. Consultation with political scientist was obtained. Prior to discharge, lower GI bleed had resolved. He was tolerating diet and stable for discharge Patient Condition at Discharge: Stable Plan - Discharge Summary New Discharge Prescriptions: No Action Clobetasol Propionate [Temovate 0.05% Cream] 1 applic TOPICAL DAILY PRN PRN Reason: Rash Thompson-3 Fatty Acids/Fish Oil [Fish Oil 1,000 mg Softgel] 2 cap PO DAILY Discharge Medication List Clobetasol Propionate [Temovate 0.05% Cream] 1 applic TOPICAL DAILY PRN 04/30/19 [History] Thompson-3 Fatty Acids/Fish Oil [Fish Oil 1,000 mg Softgel] 2 cap PO DAILY 04/30/19 [History] Follow up Appointment(s)/Referral(s): Helio Gurrola MD [Primary Care Provider] - 1-2 days Damaris Shepherd MD [Family Provider] - 1 Week Patient Instructions/Handouts: Gastrointestinal Bleeding (DC) Discharge Disposition: HOME SELF-CARE
== END 2019-05-01 18:00 | disposition home or self-care (01) | DRG 920 ==
LOC: EC 15:53 → 2SICU 17:06
PROVIDERS: ADMIT Surgery Plastic and Reconstructive Surgery; ATTEND Surgery Plastic and Reconstructive Surgery
DX: K91.840 Postprocedural hemorrhage of a digestive system organ or structure following a digestive system procedure (principal); N17.9 Acute kidney failure, unspecified; Y83.8 Other surgical procedures as the cause of abnormal reaction of the patient, or of later complication, without mention of misadventure at the time of the procedure; Z87.891 Personal history of nicotine dependence; R55 Syncope and collapse; D12.5 Benign neoplasm of sigmoid colon; W19.XXXA Unspecified fall, initial encounter; I95.9 Hypotension, unspecified; Z88.0 Allergy status to penicillin
CPT/HCPCS: 36415; 45385; 70450; 71045; 72125; 74018; 80048; 80053; 83605; 83690; 83735; 85025; 85027; 85610; 85730; 86850; 86900; 86901; 88305; 93005; 96360; 99285